=== PATIENT | female | born 1940 | race Caucasian/White ===

== ENCOUNTER 2024-06-23 10:03 | Observation (INO) ==
[~2024-06-23 10:03] MED LIST: NS 0.45% 1000 ml BAG 1,000 ML IV SCH; Naloxone 0.4 mg VIAL 0.4 mg/ml 1 ml VIAL IV PRN; Ondansetron 4 mg VIAL 2 MG/ML 2 ml VIAL IV PRN; fentaNYL 100 mcg/2 ml 50 MCG/ML VIAL IV PRN
[2024-06-23] MEDS ORDERED: Dexamethasone IV 4 MG/ML VIAL 1 ml VIAL ONE (10:10)
[2024-06-23] MEDS ORDERED: Ondansetron 4 mg VIAL 2 MG/ML 2 ml VIAL ONE (10:10)
[2024-06-23] MEDS: Buffered Lidocaine 1% SYRIN 1 ml INTRADERM ONE (10:18)
[2024-06-23] MEDS ORDERED: ceFAZolin 2 GM PREMIX 2 GM/50 ML BAG ONE (10:23)
[2024-06-23] MEDS ORDERED: Tranexamic Acid 1 GM/100ML BAG 2,000 MG/200 ML BAG IV ONE (10:25)
[2024-06-23 11:00] LABS: Rapid COVID-19 Molecular Undetected (Undetected)
[2024-06-23] MEDS ORDERED: ROPIVACAINE 5 MG/ML 30 ML BTL (0.5%) ONE ×2 (11:28→12:00)
[2024-06-23] MEDS ORDERED: Midazolam 5 mg/5 ml VIAL 1 mg/ml 5 ml VIAL (5 mg) ONE (11:28)
[2024-06-23] MEDS ORDERED: fentaNYL 100 mcg/2 ml 50 MCG/ML VIAL ONE (11:28)
[2024-06-23] MEDS ORDERED: Acetaminophen IV 1 GM/100ML 1,000 MG/100 ML BAG IV ONE (14:04)
[2024-06-23] MEDS ORDERED: Lactulose 30 ml UDC PO PRN (15:33)
[2024-06-23] MEDS ORDERED: Magnesium Hydroxide LIQ 30 ML UDC PO PRN (15:33)
[2024-06-23] MEDS ORDERED: Calcium Carb (TUMS) 500 mg CHEW TAB PO PRN (15:33)
[2024-06-23] MEDS ORDERED: Ondansetron 4 mg VIAL 2 MG/ML 2 ml VIAL IV PRN (15:33)
[2024-06-23] MEDS ORDERED: Morphine 2 MG/ML SYRINGE IV PRN (15:33)
[2024-06-23] MEDS ORDERED: Ondansetron ODT 4 mg TAB 4 MG TAB PO PRN (15:33)
[2024-06-23] MEDS: Lactated Ringers 1000 ml BAG 1,000 ML IV SCH ×2 (15:39→16:43)
[2024-06-23] MEDS: ceFAZolin 2 GM PREMIX 2 GM/50 ML BAG IV SCH (21:35)
[2024-06-23] MEDS: Magnesium Hydroxide LIQ 30 ML UDC PO SCH (21:36)
[2024-06-24 06:21] LABS: Hematocrit 28.6 % (35-45); Mean Platelet Volume 7.5 fL (7.5-11.2); Platelet Count 193 10^3/uL (150-450)
[2024-06-24 06:51] LABS: Creatinine, Serum 0.78 mg/dL (0.51-0.95); Potassium 4.3 mmol/L (3.5-5.0); eGFR CKD-EPI 76.3 (>60)
[2024-06-24] MEDS: Vitamin THERAPEUTIC TAB PO SCH (08:17)
[2024-06-24 13:49] VITALS: BP 107/46
== END 2024-06-24 14:00 | disposition home or self-care (01) ==
LOC: OR 10:03 → SSU 10:03
PROVIDERS: ADMIT Orthopaedic Surgery Adult Reconstructive Orthopaedic Surgery; ATTEND Orthopaedic Surgery Adult Reconstructive Orthopaedic Surgery